=== PATIENT | female | born 2005 | race Caucasian/White ===

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

== ENCOUNTER 2024-09-30 22:18 | Emergency (ER) | payer MEDICAID ==
[~2024-09-30] VITALS: Ht 162.6 cm; Wt 125.2 kg
[~2024-09-30 22:18] MED LIST: NO HOME MEDS
--- NOTE | 2024-10-01 01:18 | Physician Documentation ---
History of Present Illness ~ General Chief Complaint: See Chief Complaint Stated Complaint: RIGHT SIDE PAIN Time Seen by MD: 01:17 OK to notify your PCP?: Yes Primary Medical Doctor: none Source: patient, RN/MD, RN notes reviewed, old records Mode of Arrival: POV, Ambulatory Exam Limitations: no limitations History of Present Illness Initial Comments 19 year old female with chronic back pain seen in bed 15 presents to the emergency department for complaints of right sided shoulder pain that began a few days ago. She states that when traveling she began to have a pain in her right shoulder that radiates down her side. She states that today the pain became more intense. Prior to the worsening pain patient states she has been dizzy, lightheaded, and nauseous and has been vomiting. She denies any sick exposure or eating any bad food. She states she has been treating her pain with Tylenol and ibuprofen. Of note on presentation patient asks to stay the night in the hospital because she doesn't want to be at home. Medication Reconciliation Allergies: Coded Allergies: No Known Allergies (Unverified , 09/09/23) Miscellaneous Medications Home Med List (No Home Medications), (Reported) Past Medical History Past Medical History: Chronic Back Pain Past Surgical History: no surgical history Smoking Status: Never smoker Alcohol Use: None Drug Use: none Review of Systems All Other Systems at this time: Reviewed and Negative ROS As stated above in the HPI, otherwise all systems are reviewed and negative. Physical Exam Physical Exam Vital Signs: RN Vital Signs have been reviewed: Yes, Temperature: 98.4, Source: Temporal, Heart Rate: 97, Respiratory Rate: 16, BP: 123/84, Pulse Oximetry: 99, Weight: 125.200 Oxygen Flow Rate: 0 Pulse Oximetry Reflects: adequate oxygenation Physical Exam General: The patient is well developed, well nourished, nontoxic appearing and is in no acute distress. Skin: [place]ug[place], warm and dry with no rashes. HEENT: Head was normocephalic and atraumatic. Eyes - pupils equal, round, reactive to light and accommodation. Extraocular movements were intact. Conjunctivae were nonicteric. Ears - bilateral tympanic membranes were normal. The mouth and oropharynx were clear with moist mucous membranes. There were no pharyngeal exudates or erythema. Neck: Supple and nontender. There was no jugular venous distention, lymphadenopathy, thyromegaly or masses. Chest: Clear to auscultation bilaterally without wheezes, rales or rhonchi. No accessory muscle use. No dullness to percussion. Heart: Rate regular and rhythmic. S1, S2. No murmurs. Palpation of the chest wall was normal. No rubs or thrills. Abdomen: Pain to palpation of patients right shoulder and lower spine. Soft, nontender and nondistended. Positive bowel sounds. No guarding or rebound. No hepatosplenomegaly or palpable masses. Extremities: No cyanosis, clubbing or edema. The patient moves all extremities. Pulses were equal and symmetric. Neurologic: Cranial nerves II-XII were intact. Sensation was intact to light touch throughout. Motor strength was 5/5 in all four extremities. Deep tendon reflexes were intact in both upper and lower extremities. Psychologic: The patient was oriented to person, place and time. The patient demonstrated appropriate judgement and insight. Progress Results/Orders Results/Orders Medications Received in ER Medications (Trade) Dose Ordered Sig/Samuel Route PRN Reason Start Time Stop Time Status Last Admin Dose Admin (Ultram tablet) 100 mg ONCE ONCE PO 10/01/24 01:35 10/01/24 01:36 DC 10/01/24 01:43 100 MG Vital Signs 09/30/24 09/30/24 09/30/24 10/01/24 22:32 23:39 23:39 01:09 Temp 98.4 Pulse 85 79 97 Resp 20 20 16 16 B/P (MAP) 135/93 135/87 (103) 123/84 (97) Pulse Ox 99 98 99 O2 Flow Rate 0 0 0 10/01/24 10/01/24 01:43 02:09 Temp 98.7 Pulse 74 Resp 16 16 B/P (MAP) 114/77 (89) Pulse Ox 97 O2 Flow Rate 0 Laboratory Tests Test 10/01/24 01:45 Urine Specimen Description Urinal Urine Color Yellow Urine Clarity Slightly cloudy Urine pH 6.0 Urine Specific Artie 1.020 Urine Protein Negative Urine Glucose (UA) Negative Urine Ketones Negative Urine Occult Blood Negative Urine Nitrite Negative Urine Bilirubin Negative Urine Urobilinogen 0.2 Urine Leukocyte Esterase Negative Urine RBC 0-2 Urine WBC None seen Urine Squamous Epithelial Cells None seen Urine Bacteria Few Urine Mucus Few Urine Culture Indicated Not ind Volume Urine Centrifuged 10 ml Urine HCG, Qualitative Negative Urine Comment Urine Opiates Screen Negative Urine Methadone Screen Negative Urine Fentanyl Screen Negative Urine Barbiturates Screen Negative Urine Phencyclidine Screen Negative Urine Amphetamines Screen Negative Urine Benzodiazepines Screen Negative Urine Cocaine Screen Negative Urine Cannabinoids Screen Negative Drug Screen Comment EKG/XRAY/CT/US/VASC/MRI CT #1: Impression EXAM: CT CT THORACIC SPINE HISTORY: pain muscle spasm COMPARISON: None CTDIvol 28 mGy, DLP 1127 mGy*cm. TECHNIQUE: Multiple axial CT images of the spine were obtained using bone algorithm. Axial and coronal reformatting was done. Bone and soft tissue windows were reviewed. FINDINGS: No vertebral fracture or compression deformity. 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 No listhesis or significant degenerative change. The imaged chest wall is intact. No acute finding of the visualized chest contents. IMPRESSION: 1. Unremarkable thoracic spine CT. Electronically Signed by:CHETAN MARROQUIN MD Date & Time: 10/01/24331 Dictated by: CHETAN MARROQUIN MD Dictation date and time: 10/01/24331 CT #2: Impression EXAM: CT CT LUMBAR SPINE HISTORY: pain muscle spasm COMPARISON: None CTDIvol 35 mGy, DLP 1187 mGy*cm. TECHNIQUE: Multiple axial CT images of the spine were obtained using bone algorithm. Axial and coronal reformatting was done. Bone and soft tissue windows were reviewed. FINDINGS: No acute fracture or compression deformity. Normal osseous mineralization. Normal lordotic curvature without listhesis. No significant degenerative change. The imaged osseous pelvis is intact. No acute finding of the visualized abdominal contents. IMPRESSION: 1. Unremarkable lumbar CT. Electronically Signed by:CHETAN MARROQUIN MD Date & Time: 10/01/24329 Dictated by: CHETAN MARROQUIN MD Departure Time of Disposition: 04:10 Disposition: 01 HOME / SELF CARE / HOMELESS Impression: Primary Impression: Muscle spasm Condition: Stable Discharge Instructions: Muscle Cramps and Spasms Referrals: NO PRIMARY CARE PROVIDER (PCP) Signature Scribe Signature: Scribed for Harvey Hart MD by Martha Luna . 10/01/24 01:47 Attestation: The note accurately reflects work and decisions made by me.Harvey Hart MD 10/01/24 01:18 HARVEY HART MD Oct 01, 2024 01:18 MARTHA ERAZO Oct 01, 2024 01:47
[2024-10-01 02:09] VITALS: BP 114/77; PULSE 74; RESP 16; TEMP 98.7; O2SAT 97
[2024-10-01 02:13] LABS: URINE HCG NEGATIVE (NEG)
[2024-10-01 02:29] LABS: LEUKOCYTE ESTERASE ,URINE NEGATIVE (Neg); NITRITES, URINE NEGATIVE (Neg); OCCULT BLOOD,URINE NEGATIVE (Neg)
[2024-10-01 02:32] LABS: UA COLLECTION TYPE URINAL
[2024-10-01 02:36] LABS: URINE AMPHETAMINE SCREEN NEGATIVE (Neg); URINE BARBITUATE SCREEN NEGATIVE (Neg); URINE BENZODIAZEPINES SCREEN NEGATIVE (Neg); URINE CANNABINOID SCREEN NEGATIVE (Neg); URINE COCAINE SCREEN NEGATIVE (Neg); URINE METHADONE SCREEN NEGATIVE (Neg); URINE OPIATE SCREEN NEGATIVE (Neg); URINE PHENCYCLIDINE SCREEN NEGATIVE (Neg)
[2024-10-01 02:37] LABS: MUCUS STRANDS FEW /LPF (Neg); SQUAMOUS EPITHELIAL CELL,UR NONE SEEN /LPF (FEW)
--- NOTE | 2024-10-01 03:33 | RADIOLOGY REPORT ---
EXAM: CT CT LUMBAR SPINE HISTORY: pain muscle spasm COMPARISON: None CTDIvol 35 mGy, DLP 1187 mGy*cm. TECHNIQUE: Multiple axial CT images of the spine were obtained using bone algorithm. Axial and young l reformatting was done. Bone and soft tissue windows were reviewed. FINDINGS: No acute fracture or compression deformity. Normal osseous mineralization. Normal lordotic curvature without listhesis. No significant degenerative change. The imaged osseous pelvis is intact. No acut e finding of the visualized abdominal contents. IMPRESSION: 1. Unremarkable lumbar CT.
--- NOTE | 2024-10-01 03:34 | RADIOLOGY REPORT ---
EXAM: CT CT THORACIC SPINE HISTORY: pain muscle spasm COMPARISON: None CTDIvol 28 mGy, DLP 1127 mGy*cm. TECHNIQUE: Multiple axial CT images of the spine were obtained using bone algorithm. Axial and young l reformatting was done. Bone and soft tissue windows were reviewed. FINDINGS: No vertebral fracture or compression deformity. 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 No listhesis or significant degenerative change. The imaged chest wall is intact. No acute f inding of the visualized chest contents. IMPRESSION: 1. Unremarkable thoracic spine CT.
[2024-10-01] MEDS ORDERED: NAPR-56 PO (04:14)
[2024-10-01] MEDS ORDERED: TRAM50TA2 PO (04:14)
== END 2024-10-01 04:41 | disposition home or self-care (01) ==
LOC: ER 22:18
DX: M62.838 Other muscle spasm (principal); M25.511 Pain in right shoulder; R11.0 Nausea; R42 Dizziness and giddiness
CPT/HCPCS: 72128; 72131; 80305; 81001; 81025; 99284